=== PATIENT | female | born 1950 | race Caucasian/White ===

== ENCOUNTER 2019-05-02 17:58 | Emergency (ER) | payer MEDICARE, OTHER ==
[2019-05-02 18:14] VITALS: BP 132/60
--- NOTE | 2019-05-02 18:39 | UC ---
Throat Pain/Nasal Jamir HPI - HPI Summary HPI Summary: 68-year-old woman comes in with a chief complaint of upper respiratory tract infection symptoms for several days. She's had some rhinorrhea. She has generalized body aches cough chest congestion. Been having fevers at home. She has been taking ibuprofen and acetaminophen has been helping with the symptoms. She is a smoker she does have COPD. She feels short of breath but she says it is a pretty normal level of shortness of breath. Been having some burning with urination last day. Initially she had some left flank pain and left lower abdominal pain but that pain is gone now. - History of Current Complaint Chief Complaint: UCGeneralIllness Stated Complaint: URINARY/COUGH/CONGESTION Time Seen by Provider: 05/02/19 18:15 Pain Intensity: 4 - Allergies/Home Medications Allergies/Adverse Reactions: Allergies Allergy/AdvReac Type Severity Reaction Status Date / Time nitrofurantoin Allergy Hives Verified 05/02/19 18:14 [From Macrodantin] Penicillins Allergy Hives Verified 05/02/19 18:14 PMH/Surg Hx/FS Hx/Imm Hx Previously Healthy: Yes Endocrine History: Diabetes, Dyslipidemia Cardiovascular History: Hypertension Respiratory History: COPD - Surgical History Surgical History: Yes Surgery Procedure, Year, and Place: Left Leg Vein Strip, 1986. Appendectomy, 1988. Tubal Ligation, 1982 - Family History Known Family History: Positive: None, Cardiac Disease - Social History Alcohol Use: None Substance Use Type: None Smoking Status (MU): Heavy Every Day Tobacco Smoker Type: Cigarettes Amount Used/How Often: 1 PPD Length of Time of Smoking/Using Tobacco: 44 Years Have You Smoked in the Last Year: Yes Household Exposure Type: Cigarettes Review of Systems All Other Systems Reviewed And Are Negative: Yes Constitutional: Positive: Fever, Chills, Other - SEE HPI Skin: Positive: Negative Eyes: Positive: Negative ENT: Positive: Nasal Discharge, Sinus Congestion Respiratory: Positive: Shortness Of Breath, Cough, Other - SEE HPI Cardiovascular: Positive: Negative Gastrointestinal: Positive: Negative Genitourinary: Positive: Frequency, Urgency Motor: Positive: Negative Neurovascular: Positive: Negative Musculoskeletal: Positive: Myalgia Psychological: Positive: Negative Is Patient Immunocompromised?: No Physical Exam Triage Information Reviewed: Yes Appearance: No Pain Distress, Well-Nourished, Ill-Appearing - MILD Vital Signs: Initial Vital Signs Temp 99.7 F 05/02/19 18:09 Pulse 58 05/02/19 18:09 Resp 24 05/02/19 18:09 BP 132/60 05/02/19 18:09 Pulse Ox 96 05/02/19 18:09 Vital Signs Reviewed: Yes Eye Exam: Normal Eyes: Positive: Conjunctiva Clear ENT: Positive: Pharyngeal erythema, Nasal congestion, Nasal drainage, TMs normal Neck: Positive: Supple Respiratory: Positive: Lungs clear, Normal breath sounds, No respiratory distress Cardiovascular: Positive: RRR Abdomen Description: Positive: Nontender. Negative: CVA Tenderness (R), CVA Tenderness (L) Musculoskeletal: Positive: Strength Intact, ROM Intact Neurological: Positive: Alert, Muscle Tone Normal Psychological: Positive: Normal Response To Family, Age Appropriate Behavior Skin Exam: Normal Throat Pain/Nasal Course/Dx - Course Course Of Treatment: Patient's positive for the flu therefore it treating with Tamiflu. Patient has COPD she is a smoker she does have chest congestion. We discussed viral versus bacterial infections and the role of antibiotics at this time patient prefers to be on an antibiotic. We did discuss that if things got worse she got short of breath more chest congestion she should go the emergency department. - Differential Dx/Diagnosis Provider Diagnosis: Influenza, Bronchitis Discharge ED - Sign-Out/Discharge Documenting (check all that apply): Patient Departure All imaging exams completed and their final reports reviewed: No Studies - Discharge Plan Condition: Stable Disposition: HOME Prescriptions: Azithromycin 250 mg PO DAILY #4 tablet Oseltamivir CAP* [Tamiflu CAP*] 75 mg PO BID #8 cap Patient Education Materials: Influenza (ED), Acute Bronchitis (ED) Referrals: [facility] [place] [facility] [Outside] Additional Instructions: FOLLOW UP WITH YOUR DOCTOR. GO TO THE EMERGENCY DEPARTMENT IF NOT IMPROVING OR WORSE OR ANY QUESTIONS OR CONCERNS. - Billing Disposition and Condition Condition: STABLE Disposition: Home
[2019-05-02 18:49] LABS: Influenza A Molecular POSITIVE (Negative)
[2019-05-02] MEDS ORDERED: Oseltamivir CAP* 75 MG CAP PO ONE ×2 (19:00)
[2019-05-02] MEDS ORDERED: Azithromycin TAB* 250 MG PO ONE (19:01)
== END 2019-05-02 19:27 | disposition home or self-care (01) ==
LOC: UCCORT 17:58
DX: J44.9 Chronic obstructive pulmonary disease, unspecified (principal); J11.1 Influenza due to unidentified influenza virus with other respiratory manifestations; E11.9 Type 2 diabetes mellitus without complications; I10 Essential (primary) hypertension; F17.210 Nicotine dependence, cigarettes, uncomplicated; Z88.0 Allergy status to penicillin; Z88.1 Allergy status to other antibiotic agents
CPT/HCPCS: 81003; 99213; A9270-GY; G0463